=== PATIENT | male | born 1985 | race Caucasian/White ===

== ENCOUNTER 2017-01-21 08:48 | Emergency (ER) | payer OTHER, SELFPAY | END 2017-01-21 09:20 | disposition home or self-care (01) | LOC: NAV ERS 08:48 | DX: K02.9 Dental caries, unspecified (principal); F17.210 Nicotine dependence, cigarettes, uncomplicated | CPT/HCPCS: 99282 ==

== ENCOUNTER 2020-01-07 11:42 | Emergency (ER) | payer SELFPAY | END 2020-01-07 12:15 | disposition home or self-care (01) | LOC: NAV ERS 11:42 | DX: K02.9 Dental caries, unspecified (principal); F17.210 Nicotine dependence, cigarettes, uncomplicated | CPT/HCPCS: 99282 ==

== ENCOUNTER 2024-05-14 14:27 | Emergency (ER) | payer SELFPAY | END 2024-05-14 16:00 | disposition home or self-care (01) | LOC: NAV ERS 14:27 | DX: K04.4 Acute apical periodontitis of pulpal origin (principal); F17.210 Nicotine dependence, cigarettes, uncomplicated | CPT/HCPCS: 99282 ==